=== PATIENT | male | born 1985 | race Caucasian/White ===

== ENCOUNTER 2020-03-12 14:21 | Emergency (ER) | payer OTHER, SELFPAY ==
[2020-03-12 14:30] VITALS: BP 104/64; PULSE 65; RESP 18; TEMP 36.8; O2SAT 100
[2020-03-12 15:07] LABS: Add Urine Microscopic? YES; Appearance Urine Clear (Clear); Bilirubin Urine Negative (Negative); Blood Urine Negative (Negative); Color Urine Yellow (Yellow); Glucose Urine UA Negative (Negative); Ketones Urine Negative (Negative); Leukocyte Esterase Ur Negative LEU/UL (Negative); Mucus Urine Few /lpf; Nitrate Urine Negative (Negative); Protein Urine Negative (Negative); RBC Urine 0-2 /hpf (0-2); Squamous Epithelial Cell Urine Rare /hpf (Few); Urobilinogen Urine Negative mg/dL (<2.0); WBC Urine 0-3 /hpf
[2020-03-12 15:10] LABS: Specific Grav Ur 1.031 (1.001-1.035)
--- NOTE | 2020-03-12 16:23 | ED.MALEGU ---
HPI - Male Genitourinary General Chief complaint: Urogenital-Male Stated complaint: Slight issue to be checked Time Seen by Provider: 03/12/20 15:17 Source: patient Mode of arrival: ambulatory Limitations: no limitations History of Present Illness HPI Narrative: This is a 34 year old male that presents to the ER for testicular pain x 3 days. No known injuries. Reports he had unprotected sex a week ago and is concerned for STDs. Denies fever, abdominal pain, vomiting, dysuria or hematuria. Related Data Allergies Allergy/AdvReac Type Severity Reaction Status Date / Time No Known Allergies Allergy Mild Verified 03/12/20 14:35 Review of Systems Review of Systems: Narrative: CONSTITUTIONAL: Denies fever GASTROINTESTINAL: Denies abdominal pain, nausea, vomiting GENITOURINARY: Denies dysuria or hematuria. SKIN: Denies rash All systems reviewed & are unremarkable except as noted in HPI and below PMFSH Past Medical History Medical History (Updated 03/12/20 @ 16:31 by Aaliyah Small PA-C) No active medical problems Social History Social History (Updated 03/12/20 @ 16:28 by Aaliyah Small PA-C) Smoking status: Current every day smoker Substance use: current Substance use type: marijuana Gender identity (if verbalized by the patient): Male Exam Narrative: Exam Narrative: GENERAL: Well-appearing, well-nourished, and in no acute distress. HEAD: Normocephalic, atraumatic. EYES: EOMI. CHEST: Clear to auscultation. No respiratory distress. No wheezes rales or rhonchi HEART: Regular rate and rhythm. No murmur heard. Normal peripheral pulses. ABDOMEN: Soft, nontender, nondistended, normal active bowel sounds. EXTREMITIES: Normal range of motion. No edema. SKIN: Warm, dry, no rash. NEURO: No focal deficits. Alert and oriented x3. PSYCH: Normal mood and affect MALE GENITAL: Normal external genitalia. No rashes, erythema, edema or abnormal urethral discharge. Mild right sided testicular tenderness Course Vital Signs Vital signs: Vital Signs Temperature 98.3 F 03/12/20 14:30 Pulse Rate 65 03/12/20 14:30 Respiratory Rate 18 03/12/20 14:30 Blood Pressure 104/64 03/12/20 14:30 Pulse Oximetry 100 03/12/20 14:30 Temperature 98.3 F 03/12/20 14:30 Pulse Rate 65 03/12/20 14:30 Respiratory Rate 18 03/12/20 14:30 Blood Pressure 104/64 03/12/20 14:30 Pulse Oximetry 100 03/12/20 14:30 MDM - Male Genitourinary MDM Narrative Medical decision making narrative: Patient presents to the emergency department for testicular pain x3 days. No known injuries. Had recent unprotected sex and was worried for STDs. UA is without evidence of infection. Chlamydia, gonorrhea, and trichomonas were sent. Patient would like to be presumptively treated for these. Patient refused testicular ultrasound. I made patient aware that this is how I can rule out abnormalities such as a mass, testicular torsion, etc. He still refused ultrasound. Based on history and exam he will be treated for epididymitis. Patient is stable and felt appropriate for the outpatient evaluation. He was given warnings to return to the ER Lab Data Attestation: I reviewed the patient's lab results. Labs: Lab Results 03/12/20 03/12/20 03/12/20 Range/Units 14:54 14:54 14:54 Urine Color Yellow (Yellow) Urine Appearance Clear (Clear) Urine pH 5.0 (5.0-9.0) Ur Specific [place] 1.031 (1.001-1.035) Urine Protein Negative (Negative) mg/dL Urine Glucose (UA) Negative (Negative) mg/dL Urine Ketones Negative (Negative) mg/dL Ur Blood (Man) Negative (Negative) Urine Nitrate Negative (Negative) Urine Bilirubin Negative (Negative) Urine Urobilinogen Negative (<2.0) mg/dL Leukocyte Esterase Rfl Negative (Negative) YODIT/UL Urine RBC 0-2 (0-2) /hpf Urine WBC 0-3 /hpf Ur Squamous Epith Cells Rare (Few) /hpf Hyaline Casts 1-2 (None) /lpf Urine Mucus Few H
[2020-03-12] MEDS: cefTRIAXone 250 MG VIAL IM (16:35)
[2020-03-12] MEDS: metroNIDAZOLE 250 MG TABLET 2000 MG PO (16:35)
[2020-03-12] MEDS: DOXYCYCLINE HYCLATE 100 MG TABLET PO (16:35)
[2020-03-12 16:37] VITALS: PULSE 60; RESP 12
[2020-03-12] MEDS: WATER, STERILE FOR INJECTION 10 ML VIAL XX (16:37)
== END 2020-03-12 16:45 | disposition home or self-care (01) ==
PROVIDERS: Emergency Medicine; Physician Assistant; Emergency Provider Emergency Medicine
DX: N45.1 Epididymitis (principal)
CPT/HCPCS: 81001; 87491; 87591; 87661; 96372; 99283; A9270; J0696